=== PATIENT | female | born 1955 | race Two or more races ===

== ENCOUNTER → 2024-05-04 12:39 | Outpatient (REF) | payer MEDICARE, OTHER, SELFPAY | LOC: HWRAD 12:39 | PROVIDERS: ATTENDING PHYSICIAN Obstetrics & Gynecology; FAMILY PHYSICIAN Internal Medicine | DX: N95.0 Postmenopausal bleeding (principal) | CPT/HCPCS: 76830; 76856 ==

== ENCOUNTER → 2024-08-11 07:46 | Outpatient (REF) | payer MEDICARE, OTHER, SELFPAY | LOC: MRI 07:46 | PROVIDERS: ATTENDING PHYSICIAN Obstetrics & Gynecology Gynecologic Oncology; FAMILY PHYSICIAN Internal Medicine | DX: C90.00 Multiple myeloma not having achieved remission (principal); N92.4 Excessive bleeding in the premenopausal period; N39.3 Stress incontinence (female) (male); Z90.722 Acquired absence of ovaries, bilateral | CPT/HCPCS: 72197; A9575 ==

== ENCOUNTER 2024-08-17 06:32 | Day surgery (SDC) | payer MEDICARE, OTHER, SELFPAY ==
[2024-08-11 10:55] VITALS: BMI 18.8
--- NOTE | 2024-08-14 12:13 | W.CON.GYNONC ---
Addendum entered and electronically signed by Jericho Gabriel MD 08/14/24 12:19:
Comp. Metabolic Panel (14)�-FinalOrdered by:�Yehuda Ortiz Source:�Urine
Glucose 91 mg/dL 70-99 [facility]
BUN 18 mg/dL 8-27 [facility]
Creat 0.52Low mg/dL 0.57-1.00 [facility]
eGFR 101 mL/min/1.73 >59 [facility]
BUN Creat Ratio 35High 12-28 [facility]
Sodium 145High mmol/L 134-144 [facility]
Potassium 4.5 mmol/L 3.5-5.2 [facility]
Chloride 105 mmol/L 96-106 [facility]
CO2 INTPRO mmol/L [facility]
Test�not�performed.�Due�to�technical�problems�in�testing,�a�valid
result�could�not�be�obtained.�The�remaining�specimen�was�not
sufficient�for�additional�testing.
Calcium 9.0 mg/dL 8.7-10.3 [facility]
Total Protein 9.1High g/dL 6.0-8.5 [facility]
Albumin 3.3Low g/dL 3.9-4.9 [facility]
Globulin 5.8High g/dL 1.5-4.5 [facility]
Total Bili <0.2 mg/dL 0.0-1.2 [facility]
Alk Phos 75 IU/L 44-121 [facility]
AST 18 IU/L 0-40 [facility]
ALT 14 IU/L 0-32 [facility]
Urinalysis, Complete�-FinalOrdered by:�Yehdua Ortiz Source:�Urine
Sp [place] 1.016 1.005-1.030 [facility]
ph 5.5 5.0-7.5 [facility]
Color Yellow Yellow [facility]
Appearance Clear Clear [facility]
WBC Esterase Negative Negative [facility]
Protein [Presence] Negative Negative/Trace [facility]
Glucose (urine) Negative Negative [facility]
Ketone Negative Negative [facility]
Blood Negative Negative [facility]
Bilirubin (UA) Negative Negative [facility]
Urobil 0.2Low mg/dL 0.2-1.0 [facility]
Nitrite Negative Negative [facility]
Microscopic Examination MICRON [facility]
Microscopic�follows�if�indicated.
Microscopic Examination See below: [facility]
Microscopic�was�indicated�and�was�performed.
Microscopic Examination�-FinalOrdered by:�Yehuda Ortiz Source:�Urine
WBC (Urine) HPF None seen /hpf 0 - 5 [facility]
RBC (Urine) HPF None seen /hpf 0 - 2 [facility]
Epithelial Cells (non renal) None seen /hpf 0 - 10 [facility]
Casts None seen /lpf None seen [facility]
Bacteria None seen None seen/Few [facility]
Prothrombin Time (PT)�-FinalOrdered by:�Yehuda Ortiz Source:�Urine
INR 1.0 0.9-1.2 [facility]
���������������Reference�interval�is�for�non-anticoagulated�patients.
��������������������������������������������������������������������.
���������������Suggested�INR�therapeutic�range�for�Vitamin�K
���������������antagonist�therapy:
������������������Standard�Dose�(moderate�intensity
���������������������������������therapeutic�range):�������2.0�-�3.0
������������������Higher�intensity�therapeutic�range�������2.5�-�3.5
ProTime 11.4 sec 9.1-12.0 [facility]
CEA�-FinalOrdered by:�Yehuda Ortiz Source:�Urine
CEA 1.3 ng/mL 0.0-4.7 [facility]
��������������������������������������������Nonsmokers����������<3.9
��������������������������������������������Smokers�������������<5.6
��������������������������������������������������������������������.
���������������[facility]�Electrochemiluminescence�Immunoassay
���������������(ECLIA)
��������������������������������������������������������������������.
���������������Values�obtained�with�different�assay�methods�or�kits
���������������cannot�be�used�interchangeably.��Results�cannot�be
���������������interpreted�as�absolute�evidence�of�the�presence�or
���������������absence�of�malignant�disease.
Cancer Antigen (CA) 125�-FinalOrdered by:�Yehuda Ortiz Source:�Urine
CA125 9.1 U/mL 0.0-38.1 [facility]�Electrochemiluminescence�Immunoassay�(ECLIA)
���������������������������������������������������������������������.
Values�obtained�with�different�assay�methods�or�kits�cannot�be
used�interchangeably.��Results�cannot�be�interpreted�as�absolute
evidence�of�the�presence�or�absence�of�malignant�disease.
FSH�-FinalOrdered by:�Yehuda Ortiz Source:�Urine
FSH 52.9 mIU/mL 25.8-134.8 [facility]
������������������������������������Adult�Female�������������Range
�������������������������������������Follicular�phase������3.5�-��12.5
�������������������������������������Ovulation�phase�������4.7�-��21.5
�������������������������������������Luteal�phase����������1.7�-���7.7
�������������������������������������Postmenopausal�������25.8�-�134.8
hCG,Beta Subunit, Qnt�-FinalOrdered by:�Yehuda Ortiz Source:�Urine
hCG,Beta Subunit,Qnt,Serum <1 mIU/mL [facility]
������������������������������������Female�(Non-)����0�-�����5
�������������������������������������������(Postmenopausal)��0�-�����8
���������������������������������������������������������������������.
������������������������������������Female�()
������������������������������������Weeks�of�Gestation
��������������������������������������������3����������������6�-����71
��������������������������������������������4���������������10�-���081
��������������������������������������������0��������������759�-��5235
��������������������������������������������1��������������871�-�24661
��������������������������������������������0�������������[id number]�-[id number]
��������������������������������������������3������������[id number]�-[id number]
��������������������������������������������4������������[id number]�-[id number]
�������������������������������������������44������������39837�-048772
�������������������������������������������84������������49016�-303017
�������������������������������������������10������������87573�-�62409
�������������������������������������������15������������33847��67063
�������������������������������������������56�������������5040�-�40682
�������������������������������������������57�������������7606�-�52783
�������������������������������������������36�������������3776�-�01974
[facility]�ECLIA�methodology
PTT, Activated�-FinalOrdered by:�Yehuda Ortiz Source:�Urine
aPTT 36High sec 24-33 [facility]
This�test�has�not�been�validated�for�monitoring�unfractionated�heparin
therapy.�aPTT-based�therapeutic�ranges�for�unfractionated�heparin
therapy�have�not�been�established.�For�general�guidelines�on
Heparin�monitoring,�refer�to�the�[facility]�Directory�of�Services.
TSH reflex to T4F�-FinalOrdered by:�Yehuda Ortiz Source:�Urine
TSH 1.250 uIU/mL 0.450-4.500 [facility]
Original Note:
Chief Complaint
-
NA
History of Present Illness
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
after�3�months�interval�visit.�She�underwent�PET�CT�scan�for�restaging�and�reports�her�appetite�and�energy�level�exercise�tolerance
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
PET�CT�scan�performed�most�recently�shows�no�sites�of�FDG�metabolic�activity�medullary�or�extramedullary�myoma.�CT�is�also negative�for�any�lytic�bony�lesions.
Endometrial�biopsy�performed�[place]�2�shows�scant�fragments�of�ectocervical�squamous�epithelium�with�atrophy endometrium�not�identified. Endometrial�biopsy�performed�[place]��shows�scant�detached�benign�surface�endometrium
Allergies Augmentin,�Sulfa�(Sulfonamide�Antibiotics)
Medications
Vitamin�D3�50�mcg�(2,000�unit)�tablet 07/29/2024 1�p.o.�q.�day
Social�History Patient�denies�ever�using�tobacco. Current�alcohol�user.�Patient�reports�an�average�of�4�drinks�per�week. Denies�any�illicit�drug�use. Patient�has�not�had�any�occupational�exposure. Marital�Status:�Patient�is�
Gynecological�History Age�at�Menarche�12�years.�Age�at�menopause:�54�years.�Patient�reports�0�pregnancies. Patient�Reported�Level�of�Pain Pain:�no�pain. Treatment�Recommendations�for�Pain Continue�current�pain�regimen. Review�Of�Systems
The�review�of�12�systems�is�negative�except�as�outlined�in�history�of�present�illness.
Medical History
Allergies
Allergies reflect when allergies were last updated in [facility] by Brooke.
amoxicillin [From Augmentin] Allergy (Verified 08/12/24 11:12)
Rash
clavulanic acid [From Augmentin] Allergy (Verified 08/12/24 11:12)
Rash
Sulfa (Sulfonamide Antibiotics) Allergy (Verified 08/12/24 11:12)
Hives
Physical Exam
Physical Exam
Vitals�on�07/29/20240:01:00�AM:�Height=63.5in,�Gzkeib=377.6lb,�Temp=98.3f,�NdnirhlnBW=661,�DiastolicBP=88 ECOG�0:�Fully�active,�able�to�carry�on�all�pre�disease�performance�without�restriction Physical�Exam Pelvic�Examination:
External�normal�labia,�urethra,�anus.� Vagina:�Normal�mucosa.�Atrophic�changes�are�present,�pediatric�speculum�was�used,�examination�was�painful Cervix:�normal�appearance,�no�discharge.� Uterus:�normal�size. Adnexa:�No�pelvic�mass.�
RVE:�no�masses�or�nodularity General:�Well�developed,�well�nourished�patient.�In�no�acute�distress. Eyes:�EOMI.�Sclerae�are�anicteric. Neck:�No�thyromegaly.�No�cervical�lymphadenopathy. Lungs:�Clear�to�auscultation.�Good�air�movement�bilaterally.
Cardiac:�Regular�rate.�Regular�rhythm.�No�murmurs�appreciated. Right�Breast:�No�masses�or�dimpling.�No�nipple�discharge. Left�Breast:�No�masses�or�dimpling.�No�nipple�discharge. Abdomen:�Abdomen�is�soft.�Non�tender�to�palpation.�Non�distended.
Extremities:�No�edema. Hematologic/Lymphatic:�No�palpable�lymphadenopathy. Musculoskeletal:�Normal�range�of�motion.�Strength�and�Tone�are�normal. Skin:Non�jaundiced.�No�petechia.�No�purpura.
Neurologic:�Speech�is�fluent.�Normal�gait�and�station.�Cranial�nerves�intact
Impression / Plan
-
This�patient�has�had�3�episodes�of�postmenopausal�bleeding�over�the�last�2�years,�endometrial�biopsies�have�not�shed�any�light�on the�cause�of�bleeding
She�is�status�post�prior�bilateral�salpingo�oophorectomy�by�Dr.�Quinn�Gray�at�[facility],�for�benign�ovarian�cyst.�She�is�not on�any�hormonal�therapy�and�she�does�not�have�any�exogenous�source�of�estrogen.
I�am�concerned�about�this�that�there�may�be�an�occult�neoplasm�present�in�the�uterus. I�recommended�an�MRI�of�the�pelvis�as�well�as�blood�work�that�will�be�done�today.
I�am�recommending�robotic�assisted�total�laparoscopic�hysterectomy,�given�the�possibility�of�occult�neoplasm�I�recommend injecting�the�cervix�with�ICG�dye�and�mapping�and�isolating�and�resecting�sentinel�lymph�nodes�in�the�event�of�malignancy�is
identified�on�the�final�specimen.�
Risk�of�surgery�including�infection�bleeding�injury�to�adjacent�organs,�DVT�pulmonary�embolism�and cardiovascular�complications�were�discussed�and�reviewed.�Patient�is�appreciating�our�help�in�trying�to�schedule�this�in�near�future.
We�discussed�short�and�long�term�recovery�from�the�surgery. She�is�interested�in�having�the�surgery�done�in�a�short�period�of�time�as�she�has�plans�for�a�travel�in�March�2025�and�she�wants�to be�fully�recovered�for�that�golf�trip
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
development consultant�at�[facility],�I�recommended�that�she�obtains�an�opinion�from�Dr.�Leyva�[facility].
I�also�recommended�that�the�TVT�procedure�can�be�done�at�a�later�time�and�does�not�have�to�be�combined�with�a�hysterectomy�at the�same�time.�The�patient�is�excepting�of�that�recommendation.
[2024-08-17] VITALS (8 sets, daily range): BP systolic 107–136; BP diastolic 64–75; BMI 18.8
[2024-08-17] MEDS: MOBIC 15 MG PO (11:54)
[2024-08-17] MEDS: NEURONTIN 300 MG PO (11:55)
[2024-08-17] MEDS: TYLENOL 1000 MG PO (11:55)
[2024-08-17] MEDS: HEPARIN 5000 UNITS SC (12:12)
== END 2024-08-17 17:28 | disposition home or self-care (01) ==
LOC: SDS 06:32
PROVIDERS: ATTENDING PHYSICIAN Obstetrics & Gynecology Gynecologic Oncology; FAMILY PHYSICIAN Internal Medicine; OTHER PHYSICIAN Internal Medicine Hematology & Oncology; OTHER PHYSICIAN Internal Medicine Medical Oncology
DX: N80.03 Adenomyosis of the uterus (principal)
CPT/HCPCS: 58571; 38900; 38570; 88307; 36415; 86850; 86900; 86901; 88112; 88342; 93005